=== PATIENT | male | born 1990 | race Two or more races ===

== ENCOUNTER 2016-10-06 06:22 | Emergency (ER) | payer BC, OTHER ==
[~2016-10-06] VITALS: Ht 175.3 cm; Wt 113.4 kg
[~2016-10-06 06:22] MED LIST: IBUPROFEN600 MG ORAL; KEFLEX500 MG ORAL; TYLENOL EXTRA500 MG ORAL
[2016-10-06 06:36] VITALS: BP 143/82
[2016-10-06] MEDS ORDERED: Ketorolac 30mg Inj IM ONE (07:00)
[2016-10-06] MEDS ORDERED: Cyclobenzaprine 10mg Tab ORAL ONE (07:00)
[2016-10-06] MEDS ORDERED: CYCLOBENZAPRINE10 MG ORAL (07:38)
[2016-10-06] MEDS ORDERED: IBUPROFEN600 MG ORAL (07:38)
[2016-10-06 07:44] VITALS: BP 143/82
--- NOTE | 2016-10-06 09:43 | Emergency Room Report ---
History of Present Illness General Chief Complaint: Lower Back Pain or Injury Source: Patient Present Illness HPI 26-year-old male presents ED waiting of back pain. Says back pain started this morning when he woke up. Pain is lower, 10 out of 10, sharp, nonradiating. Worse with twisting and bending. Denies any recent trauma. Denies any bowel or bladder incontinence. Denies any weakness in his legs. No aggravating relieving factors. Denies any other associated symptoms Allergies: Coded Allergies: No Known Allergies (Unverified , 09/08/14) Patient History Past Medical History: none Past Surgical History: none Pertinent Family History: none Social History: Denies: smoking, alcohol use, drug use Immunizations: UTD Reviewed Nursing Documentation: PMH: Agreed, PSxH: Agreed Nursing Documentation-PMH Past Medical History: No Stated History Hx Cardiac Problems: No Hx Hypertension: No Hx Pacemaker: No Hx Asthma: No Hx COPD: No Hx Diabetes: No Hx Cancer: No Hx Gastrointestinal Problems: No Hx Dialysis: No Hx Neurological Problems: No Hx Cerebrovascular Accident: No Hx Seizures: No Review of Systems All Other Systems: negative except mentioned in HPI Physical Exam Vital Signs Date Time Temp Pulse Resp B/P (MAP) Pulse Ox O2 Delivery O2 Flow Rate FiO2 10/06/16 06:30 97.5 86 18 143/82 98 Room Air Sp02 EP Interpretation: reviewed, normal General Appearance: no apparent distress, alert, GCS 15, non-toxic, obese Head: normocephalic, atraumatic Eyes: bilateral eye normal inspection, bilateral eye PERRL ENT: hearing grossly normal, normal pharynx, no angioedema, normal voice Neck: full range of motion, supple/symm/no masses Respiratory: chest non-tender, lungs clear, normal breath sounds, speaking full sentences Cardiovascular #1: regular rate, rhythm, no edema Cardiovascular #2: 2+ carotid (R), 2+ carotid (L), 2+ radial (R), 2+ radial (L) , 2+ dorsalis pedis (R), 2+ dorsalis pedis (L) Gastrointestinal: normal bowel sounds, non tender, soft, non-distended, no guarding, no rebound Rectal: deferred Genitourinary: normal inspection, no CVA tenderness, no vertebral tenderness Musculoskeletal: back normal, gait/station normal, normal range of motion, non- tender, tender - paraspinal lumbar tenderness Neurologic: alert, oriented x3, responsive, motor strength/tone normal, sensory intact, speech normal Psychiatric: judgement/insight normal, memory normal, mood/affect normal, no suicidal/homicidal ideation Reflexes: 3+ bicep (R), 3+ bicep (L), 3+ tricep (R), 3+ tricep (L), 3+ knee (R) , 3+ knee (L) Skin: normal color, no rash, warm/dry, well hydrated Lymphatic: no adenopathy Medical Decision Making Diagnostic Impression: Primary Impression: Low back pain Qualified Codes: M54.5 - Low back pain ER Course Hospital Course 26-year-old male presents ED complaining of lower back pain. No evidence of trauma Differential diagnoses include: pyelonephritis, kidney stone, muscle strain, Lspine fracture Clinical course Patient placed on stretcher. After initial history and physical I ordered toradol and flexeril for pain. Upon reassessment patient states pain has improved. Upon review of EMR, patient does not have any visits to ED requesting pain medications. Diagnosis - back pain Stable and discharged to home with prescription for Motrin, Flexeril. Followup with PMD. Return to ED if symptoms recur or worsen Last Vital Signs Date Time Temp Pulse Resp B/P (MAP) Pulse Ox O2 Delivery O2 Flow Rate FiO2 10/06/16 07:44 97.5 86 18 143/82 98 Room Air Status: improved Disposition: HOME, SELF-CARE Condition: Stable Scripts Cyclobenzaprine Hcl* (FLEXERIL*) 10 Mg Tablet 10 MG ORAL TID Y for Muscle Spasm, #20 TAB Prov: STONEY TERRAZAS M.D. 10/06/16 Ibuprofen* (MOTRIN*) 600 Mg Tablet 600 MG ORAL Q8H Y for For Pain, #30 TAB 0 Refills Prov: STONEY TERRAZAS M.D. 10/06/16 Departure Forms: Return to Work Return to Work Date: Oct 08, 2016 Work Restrictions: No Heavy Lifting, No Prolonged Standing Patient Instructions: Low Back Sprain With [facility] STONEY TERRAZAS M.D. Oct 06, 2016 09:43
== END 2016-10-06 07:51 | disposition home or self-care (01) ==
LOC: EMR 07:16
DX: M54.5 Low back pain (principal)
CPT/HCPCS: 96372; 99284; J1885